=== PATIENT | male | born 1970 ===

== ENCOUNTER → 2021-02-21 15:30 | Outpatient (BNVA) | payer OTHER, SELFPAY | PROVIDERS: Visit Provider Urology ==

== ENCOUNTER → 2021-08-30 09:49 | Outpatient (BNVA) | payer OTHER, SELFPAY | PROVIDERS: PCP Family Medicine; Visit Provider Urology ==

== ENCOUNTER 2022-09-03 10:01 | Outpatient (REF) | payer OTHER, SELFPAY ==
[2022-09-03 11:22] LABS: Hematocrit 48.5 % (42.0-52.0); Hemoglobin 15.9 g/dl (14.0-18.0); Mean Corpuscular HGB Conc 32.8 g/dl (31.0-36.0); Mean Corpuscular Hemoglobin 25.9 pg (27.0-33.0); Mean Platelet Volume 8.3 fL (9.4-12.4); Platelet Count 408 X10*3/uL (160-400); Red Blood Count 6.14 X10*6/uL (4.60-5.80); White Blood Count 9.5 X10*3/uL (4.8-10.8)
[2022-09-03 11:52] LABS: Cholesterol 248 mg/dL; HDL Cholesterol 36 mg/dL; LDL Cholesterol Calculated 194 mg/dl; Triglycerides 91 mg/dL
[2022-09-13 08:19] LABS: Testosterone, Total 232 ng/dL (250-1100)
== END 2022-09-03 10:02 | disposition home or self-care (01) ==
LOC: HO.LAB 10:01
PROVIDERS: PCP Family Medicine; Visit Provider Urology
DX: Z12.5 Encounter for screening for malignant neoplasm of prostate (principal); E29.1 Testicular hypofunction
CPT/HCPCS: 36415; 80061; 84153; 84403; 85027

== ENCOUNTER → 2022-09-10 14:48 | Outpatient (BNVA) | payer OTHER, SELFPAY | PROVIDERS: PCP Family Medicine; Visit Provider Urology | DX: Z13.89 Encounter for screening for other disorder (principal) ==

== ENCOUNTER 2023-01-31 15:21 | Outpatient (REF) | payer OTHER, SELFPAY ==
[2023-02-03 18:17] LABS: Lyme Abs Screen <0.90 index
== END 2023-01-31 15:22 | disposition home or self-care (01) ==
LOC: HO.LAB 15:21
PROVIDERS: PCP Family Medicine; Visit Provider Family Medicine
DX: T14.8XXA Other injury of unspecified body region, initial encounter (principal); W57.XXXA Bitten or stung by nonvenomous insect and other nonvenomous arthropods, initial encounter; Y93.9 Activity, unspecified; Y92.9 Unspecified place or not applicable; Y99.9 Unspecified external cause status
CPT/HCPCS: 36415; 86617; 86618

== ENCOUNTER 2023-02-28 15:02 | Outpatient (REF) | payer OTHER, SELFPAY ==
[2023-02-28 15:32] LABS: Hematocrit 50.5 % (42.0-52.0); Hemoglobin 16.2 g/dl (14.0-18.0); Mean Corpuscular HGB Conc 32.1 g/dl (31.0-36.0); Mean Corpuscular Hemoglobin 25.4 pg (27.0-33.0); Mean Corpuscular Volume 79.2 fL (80.0-98.0); Platelet Count 428 X10*3/uL (160-400); Red Blood Count 6.38 X10*6/uL (4.60-5.80); Red Cell Distribution Width 14.9 % (11.0-16.0)
[2023-02-28 17:13] LABS: Prostate Specific Antigen 1.29 ng/mL (<0.05-4.0)
[2023-03-06 14:03] LABS: Testosterone, Total 344 ng/dL (250-1100)
== END 2023-02-28 15:03 | disposition home or self-care (01) ==
LOC: HO.LAB 15:02
PROVIDERS: Visit Provider Urology
DX: Z12.5 Encounter for screening for malignant neoplasm of prostate (principal); E29.1 Testicular hypofunction
CPT/HCPCS: 36415; 84153; 84403; 85027

== ENCOUNTER 2023-03-19 10:15 | Outpatient (AMB) | payer OTHER, SELFPAY ==
--- NOTE | 2023-03-19 10:28 | MHC.OFFVIS ---
Intake Intake Visit Reasons: 6M CBC/PSA/Testosterone(set) Intake Note: Patient is present for Follow Up Labs Urology Med: Tadalafil, Testosterone Antibiotic Allergy: None Blood Thinner: None [facility]: [facility] Allergies No Known Allergies Allergy (Verified 03/19/23 10:30) HPI HPI Comments History of Present Illness Details Joe MORRIS is a very pleasant male. He is a patient of Dr. Vásquez. He is seen for the following urologic conditions. - hypogonadism - erectile dysfunction - lower urinary tract symptoms T - 0.2 2x a week - Fri/ Continue with current medications Responding to daily Cialis for both erections and lower urinary tract symptoms Lab work tends to be variable secondary to timing of injections based on work schedule Hypogonadism:? He presents today for?further evaluation and followup of his hypogonadism.? Initial symptoms include? erectile dysfunction ?Yes ? decreased libido ?Yes ? change in mood/depression ?Yes ? in muscle size/strength ?Yes ? 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 Laboratory results?01/22 baseline T 300, FSH and LH low normal, ?03/25 partial response to clomiphene would but FSH and LH did not rise superficial indicative of pituitary contribution ?04/24 1097 ?11/23 1045, FSH, LH low - 01/24 T 1300, PSA 1.1, Hct 56, 08/28 T 56 PSA 1.0, 02/25 T 1225 Hct 46, 08/29 H 45%, 03/29 T 344 P 1.3 ? Diagnosis based on history and laboratory results?combined testicular insufficiency ? Therapeutic plan?Continue with injection 0.4 cc subcutaneous q.week.? Erectile dysfunction:? Prefer to switch back to 20 mg of Cialis - daily ? He presents today for?for continued evaluation and management of erectile dysfunction.? Symptoms have been present for/since?Ongoing.? Current treament includes?Has used [id number] boosters.? Treatment side effects include?none.? Prior therapies include?oral medications.? At this time he experiences erections?are partial and adequate for vaginal penetration, that undergo rapid detumesence after penetration, KENYETTA 8-11 Moderate ED.? Nocturnal erections?do occur.? Currently they are?in a stable relationship.? Satisfied with the current management.? Therapeutic plan includes?Testosterone provided ?Cialis refill.? PFSH Medical History Erectile dysfunction Low testosterone Sleep disorder, unspecified Weak urinary stream Hypogonadism in male Surgical History History of surgery Social History Patient Tobacco Use Status: Never used Tobacco Review of Systems Const Denies chills and Denies fever(s) Card Reports no additional complaints and Denies syncope Resp Denies cough GI Denies abdominal pain and Denies heartburn Reports as per HPI and Denies change in libido Neuro Denies syncope Psych Denies change in libido Endo Denies change in libido Physical Exam Const General: cooperative, healthy appearing, comfortable and no acute distress Orientation/consciousness: patient oriented x3 HEENT Face and sinus: Yes normal facial exam Mouth: moist mucous membranes Neck Neck: Yes normal visual inspection, Yes full ROM and Yes trachea midline Chest Chest palpation & inspection: normal inspection of the chest Resp Effort & Inspection: normal respiratory effort, able to speak in complete sentences and no respiratory distress GI Inspection: Yes normal to inspection Back/Spine/Pelvis Cervical Spine: normal cervical lordosis Thoracic/Lumbar Spine: thoracic and lumbar spine normal to inspection Skin General skin exam: no rashes or lesions noted Neuro General: patient oriented x3, gait normal, tone normal and moves all extremities Extrem General: Yes normal to inspection and Yes capillary refill normal Assessment & Plan Assessment & Plan (1) Erectile dysfunction: Code(s): N52.9 - Male erectile dysfunction, unspecified (2) Hypogonadism in male: Code(s): E29.1 - Testicular hypofunction Plan Six month follow-up tele visit Orders: Orders Prostate Specific Antigen 6 Months E29.1 - Testicular hypofunction Complete Blood Count no Diff 6 Months E29.1 - Testicular hypofunction Testosterone, Total 6 Months E29.1 - Testicular hypofunction Medications: New needle (disp) 18 G (BD Regular Bevel [place]) To draw up medication 100 ea 1RF E29.1 - Testicular hypofunction needle (disp) 22 G (BD Regular Bevel [place]) For testosterone injection weekly 100 ea 1RF E29.1 - Testicular hypofunction, E34.9 - Endocrine disorder, unspecified syringe (disposable) (BD Luer-Rosario Syringe) Testosterone injection 2 x weekly 100 ea 1RF E29.1 - Testicular hypofunction, E34.9 - Endocrine disorder, unspecified Patient Instructions: Imaging studies, laboratory and physical exam results were discussed and reviewed in detail. No major barriers to patient understanding were identified. An opportunity to ask questions regarding the treatment plan was provided. All questions were answered. The patient expressed understanding and agreement with the above treatment plan. The patient is aware they should contact our office by phone for worsening of their current condition or the appearance of new urologic symptoms. Compliance is encouraged with any medications and followup testing that is ordered. It is a privilege to participate in the urologic care of your patient. If you have any questions or concerns regarding treatment for the above conditions, or other urologic issues, please do not hesitate to contact me. The office telephone contact is [phone]. This note is constructed using voice recognition software. While every effort has been made to ensure accuracy social media assistant errors may have been included. Yours sincerely, Dr Barry Pérez MD, GONZÁLEZ [facility] - Urology Providers of Expert, Compassionate Care for the Genitourinary System Coding Level of Care Code Est Pt Level 3 (97275) Diagnoses Erectile dysfunction N52.9 Hypogonadism in male E29.1
== END 2023-03-19 10:51 | disposition home or self-care (01) ==
PROVIDERS: PCP Family Medicine; Visit Provider Urology
DX: N52.9 Male erectile dysfunction, unspecified (principal); E29.1 Testicular hypofunction
CPT/HCPCS: 99213

== ENCOUNTER → 2023-03-19 10:15 | Outpatient (BNVA) | payer OTHER, SELFPAY | PROVIDERS: PCP Family Medicine; Visit Provider Urology ==

== ENCOUNTER 2023-09-02 08:07 | Outpatient (AMB) | payer OTHER, SELFPAY ==
--- NOTE | 2023-09-02 08:12 | MHC.OFFWIV ---
Intake Vital Signs 09/02/23 08:18 Weight 232 lb BP 131/88 Blood Pressure Location Lt brachial Position Sitting Respiration 13 Pulse 88 Pulse Source Pulse Oximeter Temp 98.1 F Temp Source Temporal Artery Scan Pulse Oximetry (%) 96 Oxygen Delivery Method Room Air Intake Visit Reasons: Upper respiratory infection Intake Note: Patient reports 2 weeks of upper respiratory symptoms- cough, sinus pressure and left ear blockage. Patient reports stuffy nose. Patient has tried nasal rinse. Patient Tobacco Use Status: Never used Tobacco Accompanied by: Self / Same As Patient Allergies No Known Allergies Allergy (Verified 09/02/23 08:52) Medication List - Last Reconciled 09/02/23 by Lindy Asher, TELEPHONE LINES REPAIRER- fluticasone propionate 50 mcg/actuation (Flonase Allergy Relief) 1 spray intranasal Q12H gabapentin 100 mg PO TID loratadine-pseudoephedrine 10-240 mg ER (Claritin-D 24 Hour) 1 tab PO DAILY nabumetone 750 mg PO BID needle (disp) 18 G (BD Regular Bevel [place]) To draw up medication needle (disp) 22 G (BD Regular Bevel [place]) For testosterone injection weekly syringe (disposable) (BD Luer-Rosario Syringe) Testosterone injection 2 x weekly tadalafil 20 mg PO DAILY 90 days testosterone cypionate 40 mg subcutaneously 2x a week; 28 days Do you need a note to return to daycare/school/sports/work: No HPI HPI Comments History of Present Illness Details here w/ chest congestion and left ear blockage admits to being sick with URI for at least 1 week prior hx of pna does not smoke no flu shot this season has tried zicam and claritin d at home, sinus rinses (saline) PFSH Medical History Erectile dysfunction Low testosterone Sleep disorder, unspecified Weak urinary stream Hypogonadism in male Surgical History History of surgery Social History Patient Tobacco Use Status: Never used Tobacco Review of Systems Const All systems reviewed & are unremarkable except as noted in HPI and below Physical Exam Vital Signs: Last Vital Signs Temp 98.1 F 02/27/24 08:18 Pulse 88 09/02/23 08:18 Resp 13 09/02/23 08:18 BP 131/88 09/02/23 08:18 Pulse Ox 96 09/02/23 08:18 Oxygen Delivery Method Room Air 09/02/23 08:18 Const Other: Awake alert NAD Sclera and conjunctiva clear bilat EAC with cerumen bilat unable to visualize tympanic membrane, left EAC positive erythema Nares with mucoid discharge, turbinates pale and edematous, frontal and maxillary sinus tenderness with palpation MMM, pharynx WNL RRR LS CTAB Assessment & Plan Assessment & Plan (1) Acute bacterial sinusitis: Code(s): J01.90 - Acute sinusitis, unspecified; B96.89 - Other specified bacterial agents as the cause of diseases classified elsewhere (2) Impacted cerumen, bilateral: Comment: Advised to treat with Debrox for 5 nights and then returned to office for bilat ear lavage encouraged to wait until he is feeling better to do this. Code(s): H61.23 - Impacted cerumen, bilateral Plan . Medications: New carbamide peroxide 6.5% (Debrox) 5 drps otic (ears) DAILY 15 mL 0RF BILAT EARS 5 days amoxicillin-pot clavulanate 875-125 mg 1 tab PO BID 14 tabs 0RF 7 days Coding Level of Care Code Est Pt Level 3 (45645) Diagnoses Acute bacterial sinusitis J01.90; B96.89 Impacted cerumen, bilateral H61.23
[2023-09-02 08:18] VITALS: BP 131/88; PULSE 88; RESP 13; TEMP 36.7; O2SAT 96
== END 2023-09-02 09:02 | disposition home or self-care (01) ==
PROVIDERS: PCP Family Medicine; Visit Provider Nurse Practitioner Family
DX: J01.90 Acute sinusitis, unspecified (principal); B96.89 Other specified bacterial agents as the cause of diseases classified elsewhere; H61.23 Impacted cerumen, bilateral
CPT/HCPCS: 99213

== ENCOUNTER 2023-09-04 14:13 | Outpatient (REF) | payer OTHER, SELFPAY ==
[2023-09-04 15:32] LABS: Hemoglobin 18.1 g/dl (14.0-18.0); Mean Corpuscular HGB Conc 32.3 g/dl (31.0-36.0); Mean Corpuscular Hemoglobin 25.6 pg (27.0-33.0); Mean Corpuscular Volume 79.2 fL (80.0-98.0); Mean Platelet Volume 8.1 fL (9.4-12.4); Platelet Count 415 X10*3/uL (160-400); Red Blood Count 7.08 X10*6/uL (4.60-5.80); Red Cell Distribution Width 15.2 % (11.0-16.0); White Blood Count 7.9 X10*3/uL (4.8-10.8)
[2023-09-04 15:35] LABS: Hematocrit 56.1 % (42.0-52.0)
[2023-09-04 16:55] LABS: Prostate Specific Antigen 1.75 ng/mL (<0.05-4.0)
== END 2023-09-04 14:14 | disposition home or self-care (01) ==
LOC: HO.LAB 14:13
PROVIDERS: PCP Family Medicine; Visit Provider Urology
DX: Z12.5 Encounter for screening for malignant neoplasm of prostate (principal); E29.1 Testicular hypofunction
CPT/HCPCS: 36415; 84153; 84403; 85027

== ENCOUNTER 2023-09-17 08:51 | Outpatient (AMB) | payer OTHER, SELFPAY ==
--- NOTE | 2023-09-17 08:52 | A.OFFVIS_ITS ---
Intake Intake Visit Reasons: 6M PSA/Testo/CBC(Pending)Confirmed Intake Note: Patient presents today for a follow-up on Testo/CBC Meds- Tadalafil, Testosterone Allergies to Antibiotic- No Known Allergies Blood Thinner- None Sales Representative Graphic Art Required: No Allergies No Known Allergies Allergy (Verified 09/17/23 08:53) Medication List - Last Reconciled 09/17/23 by Barry Pérez MD carbamide peroxide 6.5% (Debrox) 5 drps otic (ears) DAILY 5 days fluticasone propionate 50 mcg/actuation (Flonase Allergy Relief) 1 spray intrana juliano Q12H gabapentin 100 mg PO TID loratadine-pseudoephedrine 10-240 mg ER (Claritin-D 24 Hour) 1 tab PO DAILY nabumetone 750 mg PO BID needle (disp) 18 G (BD Regular Bevel [place]) To draw up medication needle (disp) 22 G For testosterone injection weekly syringe (disposable) (BD Luer-Rosario Syringe) Testosterone injection 2 x weekly tadalafil 20 mg PO DAILY 90 days testosterone cypionate 40 mg subcutaneously 2x a week; 28 days HPI HPI Comments History of Present Illness Details Joe MORRIS is a very pleasant male. He is a patient of Dr. Vásquez. He is seen for the following urologic conditions. - hypogonadism - erectile dysfunction - lower urinary tract symptoms Telemedicine Evaluation 15 min Consultation [employer] Video attempted Six month review T - 0.2 2x a week - Mon/ Continue with current medications Responding to daily Cialis for both erections and lower urinary tract symptoms Lab work tends to be variable secondary to timing of injections based on work schedule Hypogonadism:? He presents today for?further evaluation and followup of his hypogonadism.? Initial symptoms include? erectile dysfunction ?Yes ? decreased libido ?Yes ? change in mood/depression ?Yes ? in muscle size/strength ?Yes ? 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 Laboratory results?01/22 baseline T 300, FSH and LH low normal, ?03/25 partial response to clomiphene would but FSH and LH did not rise superficial indicative of pituitary contribution ?04/24 109 ?11/23 1045, FSH, LH low - 01/24 T 1300, PSA 1.1, Hct 56, 08/28 T 56 PSA 1.0, 02/25 T 1225 Hct 46, 08/29 H 45%, 03/29 T 344 P 1.3, 08/30 ? Diagnosis based on history and laboratory results?combined testicular insufficiency ? Therapeutic plan?Continue with current injection process Erectile dysfunction:? Continue with 20 mg daily Cialis ? He presents today for?for continued evaluation and management of erectile dysfunction.? Symptoms have been present for/since?Ongoing.? Current treament includes?Has used [id number] boosters.? Treatment side effects include?none.? Prior therapies include?oral medications.? At this time he experiences erections?are partial and adequate for vaginal penetration, that undergo rapid detumesence after penetration, KENYETTA 8- 11 Moderate ED.? Nocturnal erections?do occur.? Currently they are?in a stable relationship.? Satisfied with the current management.? Therapeutic plan includes?Testosterone provided ?Cialis refill.? [facility] Medical History Erectile dysfunction Low testosterone Sleep disorder, unspecified Weak urinary stream Hypogonadism in male Surgical History History of surgery Social History Patient Tobacco Use Status: Never used Tobacco Review of Systems Const All systems reviewed & are unremarkable except as noted in HPI and below Reports no additional complaints Resp Reports no additional complaints GI Reports no additional complaints Reports as per HPI Musc Reports no additional complaints Physical Exam Telemedicine evaluation Appropriate responses Regular breathing rate and rhythm HEENT Head: Yes normal to inspection Ears: hearing grossly normal bilaterally Eyes General: appearance normal, both eyes and all related structures Neck Neck: Yes normal visual inspection Chest Chest palpation & inspection: normal inspection of the chest Resp Effort & Inspection: normal respiratory effort and able to speak in complete sentences Assessment & Plan Assessment & Plan (1) Erectile dysfunction: Code(s): N52.9 - Male erectile dysfunction, unspecified (2) Hypogonadism in male: Code(s): E29.1 - Testicular hypofunction Plan Six-month follow-up lab work Orders: Orders Prostate Specific Antigen 6 Months E29.1 - Testicular hypofunction Testosterone, Total 6 Months E29.1 - Testicular hypofunction Complete Blood Count no Diff 6 Months E29.1 - Testicular hypofunction Medications: Changed From needle (disp) 22 G (BD Regular Bevel [place]) For testosterone injection weekly 100 ea 1RF E29.1 - Testicular hypofunction, E34.9 - Endocrine disorder, unspecified To needle (disp) 22 G For testosterone injection weekly 100 ea 1RF E29.1 - Testicular hypofunction, E34.9 - Endocrine disorder, unspecified Refilled testosterone cypionate 40 mg subcutaneously 2x a week; 2 mL 5RF 28 days E29.1 - Testicular hypofunction syringe (disposable) (BD Luer-Rosario Syringe) Testosterone injection 2 x weekly 100 ea 1RF E29.1 - Testicular hypofunction, E34.9 - Endocrine disorder, unspecified tadalafil 20 mg PO DAILY 90 tabs 1RF 90 days E29.1 - Testicular hypofunction needle (disp) 18 G (BD Regular Bevel [place]) To draw up medication 100 ea 1RF E29.1 - Testicular hypofunction Patient Instructions: Imaging studies, laboratory and physical exam results were discussed and reviewed in detail. No major barriers to patient understanding were identified. An opportunity to ask questions regarding the treatment plan was provided. All questions were answered. The patient expressed understanding and agreement with the above treatment plan. The patient is aware they should contact our office by phone for worsening of their current condition or the appearance of new urologic symptoms. Compliance is encouraged with any medications and followup testing that is ordered. It is a privilege to participate in the urologic care of your patient. If you have any questions or concerns regarding treatment for the above conditions, or other urologic issues, please do not hesitate to contact me. The office telephone contact is [phone]. This note is constructed using voice recognition software. While every effort has been made to ensure accuracy quality control director errors may have been included. Yours sincerely, Dr Barry Pérez MD, GONZÁLEZ [facility] - Urology Providers of Expert, Compassionate Care for the Genitourinary System Telehealth Telehealth Location of provider rendering services: practice address Location of patient: address on file Patient Identification confirmed using: Name, : Yes Telehealth method: video Patient verbally consented to treatment: Yes Patient verbally consented to billing insurance company: Yes Patient informed of any privacy concerns related to visit: Yes Coding Level of Care Code Tele Est Pt Level 3 (36670) Diagnoses Erectile dysfunction N52.9 Hypogonadism in male E29.1
== END 2023-09-17 09:32 | disposition home or self-care (01) ==
LOC: HO.HUSH 08:51
PROVIDERS: PCP Family Medicine; Visit Provider Urology
DX: N52.9 Male erectile dysfunction, unspecified (principal); E29.1 Testicular hypofunction
CPT/HCPCS: 99213

== ENCOUNTER → 2023-09-17 08:51 | Outpatient (BNVA) | payer OTHER, SELFPAY | PROVIDERS: PCP Family Medicine; Visit Provider Urology ==

== ENCOUNTER 2024-03-04 14:23 | Outpatient (REF) | payer OTHER, SELFPAY ==
[2024-03-04 15:13] LABS: Hematocrit 49.1 % (42.0-52.0); Hemoglobin 16.9 g/dl (14.0-18.0); Mean Corpuscular HGB Conc 34.4 g/dl (31.0-36.0); Mean Corpuscular Hemoglobin 27.5 pg (27.0-33.0); Mean Corpuscular Volume 79.8 fL (80.0-98.0); Platelet Count 263 X10*3/uL (160-400); Red Blood Count 6.15 X10*6/uL (4.60-5.80); Red Cell Distribution Width 14.8 % (11.0-16.0); White Blood Count 6.1 X10*3/uL (4.8-10.8)
[2024-03-04 16:05] LABS: Prostate Specific Antigen 1.24 ng/mL (<0.05-4.0)
[2024-03-09 01:53] LABS: Testosterone, Total 133 ng/dL (250-1100)
== END 2024-03-04 14:24 | disposition home or self-care (01) ==
LOC: HO.LAB 14:23
PROVIDERS: Visit Provider Urology
DX: E29.1 Testicular hypofunction (principal); Z12.5 Encounter for screening for malignant neoplasm of prostate
CPT/HCPCS: 36415; 84153; 84403; 85027

== ENCOUNTER 2024-03-19 10:13 | Outpatient (AMB) | payer OTHER, SELFPAY ==
--- NOTE | 2024-03-19 10:22 | MHC.OFFVIS ---
Intake Visit Reasons: 6M PSA/Testosterone(set) Intake Note: Patient is present for 6M PSA/TESTOSTERONE Urology Medication:TADALAFIL, TESTOSTERONE Antibiotic Allergy:NONE Blood Thinner:NONE Ampoule Sealer Required: No Allergies No Known Allergies Allergy (Verified 03/19/24 10:33) HPI Comments Details: Joe MORRIS is a very pleasant male. He is a patient of Dr. Vásquez. He is seen for the following urologic conditions. - hypogonadism - erectile dysfunction - lower urinary tract symptoms Six month review Therapeutic T low Increase dosing to 0.6 cc per week Continue with current medications Responding to daily Cialis for both erections and lower urinary tract symptoms Lab work tends to be variable secondary to timing of injections based on work schedule Hypogonadism:? He presents today for?further evaluation and followup of his hypogonadism.? Initial symptoms include? erectile dysfunction ?Yes ? decreased libido ?Yes ? change in mood/depression ?Yes ? in muscle size/strength ?Yes ? 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 Laboratory results?01/22 baseline T 300, FSH and LH low normal, ?03/25 partial response to clomiphene would but FSH and LH did not rise superficial indicative of pituitary contribution ?04/24 1097 ?11/23 1045, FSH, LH low - 01/24 T 1300, PSA 1.1, Hct 56, 08/28 T 56 PSA 1.0, 02/25 T 1225 Hct 46, 08/29 H 45%, 03/29 T 344 P 1.3, 08/30 , 02/27 T 133 ? Diagnosis based on history and laboratory results?combined testicular insufficiency ? Therapeutic plan?Continue with current injection process Erectile dysfunction:? Continue with 20 mg daily Cialis ? He presents today for?for continued evaluation and management of erectile dysfunction.? Symptoms have been present for/since?Ongoing.? Current treament includes?Has used [id number] boosters.? Treatment side effects include?none.? Prior therapies include?oral medications.? At this time he experiences erections?are partial and adequate for vaginal penetration, that undergo rapid detumesence after penetration, KENYETTA 8-11 Moderate ED.? Nocturnal erections?do occur.? Currently they are?in a stable relationship.? Satisfied with the current management.? Therapeutic plan includes?Testosterone provided ?Cialis refill.? PFSH Medical History Erectile dysfunction Low testosterone Sleep disorder, unspecified Weak urinary stream Hypogonadism in male Surgical History History of surgery Social History Patient Tobacco Use Status: Never used Tobacco Review of Systems Const Denies chills and Denies fever(s) Card Reports no additional complaints and Denies syncope Resp Denies cough GI Denies abdominal pain and Denies heartburn Reports as per HPI and Denies change in libido Neuro Denies syncope Psych Denies change in libido Endo Denies change in libido Physical Exam Const General: cooperative, healthy appearing, comfortable and no acute distress Orientation/consciousness: patient oriented x3 HEENT Face and sinus: Yes normal facial exam Mouth: moist mucous membranes Neck Neck: Yes normal visual inspection, Yes full ROM and Yes trachea midline Chest Chest palpation & inspection: normal inspection of the chest Resp Effort & Inspection: normal respiratory effort, able to speak in complete sentences and no respiratory distress GI Inspection: Yes normal to inspection Back/Spine/Pelvis Cervical Spine: normal cervical lordosis Thoracic/Lumbar Spine: thoracic and lumbar spine normal to inspection Skin General skin exam: no rashes or lesions noted Neuro General: patient oriented x3, gait normal, tone normal and moves all extremities Extrem General: Yes normal to inspection and Yes capillary refill normal Assessment & Plan Assessment & Plan (1) Erectile dysfunction: Code(s): N52.9 - Male erectile dysfunction, unspecified Category: Medical (2) Hypogonadism in male: Code(s): E29.1 - Testicular hypofunction Category: Medical Plan Increased T dosage Six-month follow-up Orders: Orders Testosterone, Total 6 Months E29.1 - Testicular hypofunction Prostate Specific Antigen 6 Months E29.1 - Testicular hypofunction Complete Blood Count no Diff 6 Months E29.1 - Testicular hypofunction Patient Instructions: Imaging studies, laboratory and physical exam results were discussed and reviewed in detail. No major barriers to patient understanding were identified. An opportunity to ask questions regarding the treatment plan was provided. All questions were answered. The patient expressed understanding and agreement with the above treatment plan. The patient is aware they should contact our office by phone for worsening of their current condition or the appearance of new urologic symptoms. Compliance is encouraged with any medications and followup testing that is ordered. It is a privilege to participate in the urologic care of your patient. If you have any questions or concerns regarding treatment for the above conditions, or other urologic issues, please do not hesitate to contact me. The office telephone contact is [phone]. This note is constructed using voice recognition software. While every effort has been made to ensure accuracy psychiatric nursing assistant errors may have been included. Yours sincerely, Dr Barry Pérez MD, GONZÁLEZ [facility] - Urology Providers of Expert, Compassionate Care for the Genitourinary System Coding Level of Care Code Est Pt Level 3 (61605) Diagnoses Erectile dysfunction N52.9 Hypogonadism in male E29.1
== END 2024-03-19 11:24 | disposition home or self-care (01) ==
PROVIDERS: PCP Family Medicine; Visit Provider Urology
DX: N52.9 Male erectile dysfunction, unspecified (principal); E29.1 Testicular hypofunction
CPT/HCPCS: 99213

== ENCOUNTER → 2024-03-19 10:13 | Outpatient (BNVA) | payer OTHER, SELFPAY | PROVIDERS: PCP Family Medicine; Visit Provider Urology ==

== ENCOUNTER 2024-09-09 14:26 | Outpatient (REF) | payer OTHER, SELFPAY ==
[2024-09-09 15:54] LABS: Hemoglobin 18.8 g/dl (14.0-18.0); Mean Corpuscular HGB Conc 33.5 g/dl (31.0-36.0); Mean Corpuscular Hemoglobin 27.9 pg (27.0-33.0); Mean Corpuscular Volume 83.4 fL (80.0-98.0); Mean Platelet Volume 8.3 fL (9.4-12.4); Platelet Count 305 X10*3/uL (160-400); Red Blood Count 6.74 X10*6/uL (4.60-5.80); Red Cell Distribution Width 15.9 % (11.0-16.0); White Blood Count 6.7 X10*3/uL (4.8-10.8)
[2024-09-09 15:55] LABS: Hematocrit 56.2 % (42.0-52.0)
[2024-09-16 14:23] LABS: Testosterone, Total 352 ng/dL (250-1100)
== END 2024-09-09 14:27 | disposition home or self-care (01) ==
LOC: HO.LAB 14:26
PROVIDERS: Visit Provider Urology
DX: E29.1 Testicular hypofunction (principal); Z12.5 Encounter for screening for malignant neoplasm of prostate
CPT/HCPCS: 36415; 84153; 84403; 85027

== ENCOUNTER 2024-10-01 09:02 | Outpatient (AMB) | payer OTHER, SELFPAY ==
--- NOTE | 2024-10-01 09:04 | A.OFFVIS_ITS ---
Intake Visit Reasons: 6m/labs Intake Note: Patient presents to the office today for a 6 month follow up/labs Meds- Tadalafil, Testosterone Allergies to Antibiotic- No Known Allergies Blood Thinner- None Master Black Belt Required: No Allergies No Known Allergies Allergy (Verified 10/01/24 09:04) HPI Comments Details: Joe MORRIS is a very pleasant male. He is a patient of Dr. Vásquez. He is seen for the following urologic conditions. - hypogonadism - erectile dysfunction - lower urinary tract symptoms Six month review Therapeutic T low normal. Has high hematocrit 56 secondary to injectable testosterone Previously used topical testosterone without absorption Given high elevated hematocrit secondary to bolus testosterone injection recommend testosterone pellets Continue with current medications Responding to daily Cialis for both erections and lower urinary tract symptoms Lab work tends to be variable secondary to timing of injections based on work schedule Hypogonadism:? He presents today for?further evaluation and followup of his hypogonadism.? Initial symptoms include? erectile dysfunction ?Yes ? decreased libido ?Yes ? change in mood/depression ?Yes ? in muscle size/strength ?Yes ? 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 Laboratory results?01/22 baseline T 300, FSH and LH low normal, ?03/25 partial response to clomiphene would but FSH and LH did not rise superficial indicative of pituitary contribution ?04/24 1097 ?11/23 1045, FSH, LH low - 01/24 T 1300, PSA 1.1, Hct 56, 08/28 T 56 PSA 1.0, 02/25 T 1225 Hct 46, 08/29 H 45%, 03/29 T 344 P 1.3, 08/30 , 02/27 T 133, 09/28 T 325 H 56 P 1.5 ? Diagnosis based on history and laboratory results?combined testicular insufficiency ? Therapeutic plan?Continue with current injection process Erectile dysfunction:? Continue with 20 mg daily Cialis ? He presents today for?for continued evaluation and management of erectile dysfunction.? Symptoms have been present for/since?Ongoing.? Current treament includes?Has used [id number] boosters.? Treatment side effects include?none.? Prior therapies include?oral medications.? At this time he experiences erections?are partial and adequate for vaginal penetration, that undergo rapid detumesence after penetration, K[place] 8- 11 Moderate ED.? Nocturnal erections?do occur.? Currently they are?in a stable relationship.? Satisfied with the current management.? Therapeutic plan includes?Testosterone provided ?Cialis refill.? [facility] Medical History Erectile dysfunction Low testosterone Sleep disorder, unspecified Weak urinary stream Hypogonadism in male Surgical History History of surgery Social History Patient Tobacco Use Status: Never used Tobacco Review of Systems Const Denies chills and Denies fever(s) Card Reports no additional complaints and Denies syncope Resp Denies cough GI Denies abdominal pain and Denies heartburn Reports as per HPI and Denies change in libido Neuro Denies syncope Psych Denies change in libido Endo Denies change in libido Physical Exam Const General: cooperative, healthy appearing, comfortable and no acute distress Orientation/consciousness: patient oriented x3 HEENT Face and sinus: Yes normal facial exam Mouth: moist mucous membranes Neck Neck: Yes normal visual inspection, Yes full ROM and Yes trachea midline Chest Chest palpation & inspection: normal inspection of the chest Resp Effort & Inspection: normal respiratory effort, able to speak in complete sentences and no respiratory distress GI Inspection: Yes normal to inspection Back/Spine/Pelvis Cervical Spine: normal cervical lordosis Thoracic/Lumbar Spine: thoracic and lumbar spine normal to inspection Skin General skin exam: no rashes or lesions noted Neuro General: patient oriented x3, gait normal, tone normal and moves all extremities Extrem General: Yes normal to inspection and Yes capillary refill normal Assessment & Plan Assessment & Plan (1) Erectile dysfunction: Code(s): N52.9 - Male erectile dysfunction, unspecified Category: Medical (2) Hypogonadism in male: Code(s): E29.1 - Testicular hypofunction Category: Medical Plan Urinary Symptoms Review - Improvement in lower urinary tract symptoms with current Cialis therapy. Plan Discontinue testosterone injections due to elevated hematocrit risk. Transition to testosterone pellets every three months for stable release. Consideration of testosterone ethanate but limited by approval difficulties. Consent obtained for pellet insertion with minimal procedural risks. Continue monitoring of hematocrit and lower urinary tract symptoms. Discussion Notes I discussed with the patient the elevated hematocrit levels resulting from testosterone therapy, which pose a thromboembolic risk. I explained the options of transitioning from weekly injections to testosterone pellets or testosterone ethanate. However, testosterone pellets are preferred due to their even release and reduced hematocrit spikes, and they are more likely to be approved. The patient was informed of the risks, including potential minor local complications, and agreed on the plan for pellet therapy. I emphasized the need to monitor hematocrit levels closely and the continuation of current medication until the transition occurs. My plan included obtaining procedural consent, which the patient provided, and instructions for subsequent follow-ups. Patient Instructions - Discontinue weekly testosterone injections as advised. - Await transition to testosterone pellet therapy scheduled every three months. - Continue taking Cialis as prescribed for lower urinary tract symptoms. - Monitor blood work for hematocrit levels as directed. - Watch for any unusual symptoms such as clot formation; seek immediate medical advice if symptoms occur. - Follow up with medical appointments as scheduled for pellet insertion and monitoring. - No need for additional phlebotomy unless otherwise instructed. Patient Instructions: This note is constructed using voice recognition software. While every effort has been made to ensure accuracy juvenile justice specialist errors may have been included. Imaging studies, laboratory and physical exam results were discussed and reviewed in detail. No major barriers to patient understanding were identified. An opportunity to ask questions regarding the treatment plan was provided. All questions were answered. The patient expressed understanding and agreement with the above treatment plan. The patient is aware they should contact our office by phone for worsening of their current condition or the appearance of new urologic symptoms. Compliance is encouraged with any medications and followup testing that is ordered. It is a privilege to participate in the urologic care of your patient. If you have any questions or concerns regarding treatment for the above conditions, or other urologic issues, please do not hesitate to contact me. The office telephone contact is [phone]. Sincerely, Dr Barry Pérez MD, [facility] - Urology Compassionate Specialist Care for the Genitourinary System Coding Level of Care Code Est Pt Level 4 (28773) Complex EM visit Add On G2211 Diagnoses Erectile dysfunction N52.9 Hypogonadism in male E29.1
== END 2024-10-01 09:58 | disposition home or self-care (01) ==
LOC: HO.HUSH 09:02
PROVIDERS: PCP Family Medicine; Visit Provider Urology
DX: N52.9 Male erectile dysfunction, unspecified (principal); E29.1 Testicular hypofunction
CPT/HCPCS: 99214